=== PATIENT | male | born 1960 | race Two or more races ===

== ENCOUNTER 2021-09-09 22:53 | Emergency (ER) | payer MEDICARE, MEDICAID ==
[~2021-09-09] VITALS: Ht 175.3 cm; Wt 173.7 kg
[2021-09-10 00:54] LABS: Basophils # (auto) 0 10 ^3/uL (0-0.2); Basophils % (auto) 0.6 % (0.0-2.0); Eosinophils # (auto) 0.1 10 ^3/uL (0-0.8); Eosinophils % (auto) 1.8 % (0.0-7.0); Hematocrit 38.9 % (41.0-53.0); Hemoglobin 12.8 g/dL (13.5-17.5); Lymphocytes % (auto) 11.7 % (10.0-50.0); Mean Corpuscular Volume 84.9 fL (80.0-100.0); Monocytes # (auto) 0.8 10 ^3/uL (0-1.3); Monocytes % (auto) 9.5 % (0.0-12.0); Neutrophils # (auto) 6.3 10 ^3/uL (1.6-8.6); Neutrophils % (auto) 76.4 % (37.0-80.0); Nucleated Red Blood Cells % 0.1 %; Red Blood Cells 4.58 10^6/uL (4.5-5.90); Red Cell Distribution Width 14.1 % (11.8-14.3); White Blood Cell 8.2 10^3/uL (4.4-10.8)
[2021-09-10 01:11] LABS: Calcium 8.6 mg/dL (8.5-10.1); Magnesium 2.2 mg/dL (1.6-2.6); Potassium 4.4 mmol/L (3.5-5.1)
[2021-09-10 01:13] LABS: BUN/Creatinine Ratio 18.5
[2021-09-10 01:16] LABS: Bilirubin, Total 0.3 mg/dL (0.2-1.0); Total Protein 6.7 g/dL (6.4-8.2)
[2021-09-10] MEDS ORDERED: SODIUM CHLORIDE 0.9% 1,000 ML IV ONE (02:00)
[2021-09-10] MEDS ORDERED: IOHEXOL 300 MG/ML 100ML BOTTLE IJ ONE (02:07)
[2021-09-10] MEDS ORDERED: KETOROLAC TROMETH 30 MG/ML 1ML VIAL IV ONE (03:15)
[2021-09-10 03:18] VITALS: BP 110/74
== END 2021-09-10 03:55 | disposition home or self-care (01) ==
LOC: ER 22:55
DX: S30.1XXA Contusion of abdominal wall, initial encounter (principal); I10 Essential (primary) hypertension; X50.1XXA Overexertion from prolonged static or awkward postures, initial encounter; Y93.89 Activity, other specified; Y92.89 Other specified places as the place of occurrence of the external cause; Y99.8 Other external cause status
CPT/HCPCS: 36415; 71045; 74022; 74177; 80053; 83605; 83690; 83735; 83880; 85025; 93005; 96361; 96374; 99285; J1885; J7030; Q9967

== ENCOUNTER 2021-11-05 11:27 | Inpatient (IN) | payer MEDICARE, MEDICAID ==
[~2021-11-05] VITALS: Ht 175.3 cm; Wt 173.5 kg
[2021-11-05 13:41] LABS: Basophils # (auto) 0.1 10 ^3/uL (0-0.2); Eosinophils # (auto) 0.1 10 ^3/uL (0-0.8)
[2021-11-05 13:43] LABS: Basophils % (auto) 0.8 % (0.0-2.0); Eosinophils % (auto) 1.4 % (0.0-7.0); Hematocrit 40.5 % (41.0-53.0); Hemoglobin 12.5 g/dL (13.5-17.5); Mean Corpuscular Hemoglobin 25.4 pg (28.0-32.0); Mean Corpuscular Hgb Conc. 30.9 g/dL (32.0-36.0); Mean Corpuscular Volume 82.2 fL (80.0-100.0); Monocytes # (auto) 0.5 10 ^3/uL (0-1.3); Monocytes % (auto) 8.2 % (0.0-12.0); Neutrophils # (auto) 4.7 10 ^3/uL (1.6-8.6); Neutrophils % (auto) 73.6 % (37.0-80.0); Nucleated Red Blood Cells % 0.2 %; Red Blood Cells 4.93 10^6/uL (4.5-5.90); Red Cell Distribution Width 16.9 % (11.8-14.3); White Blood Cell 6.4 10^3/uL (4.4-10.8)
[2021-11-05 14:08] LABS: Albumin 3.4 g/dL (3.4-5.0); BUN/Creatinine Ratio 16.4; Calcium 8.8 mg/dL (8.5-10.1); Potassium 5.3 mmol/L (3.5-5.1)
[2021-11-05 14:10] LABS: Bilirubin, Total 0.6 mg/dL (0.2-1.0); Total Protein 7.1 g/dL (6.4-8.2)
[2021-11-05] MEDS ORDERED: SODIUM BICARBONATE 8.4% INJ 50ML SYRINGE IV ONE (15:30)
[2021-11-05] MEDS ORDERED: ALBUTEROL SULF 2.5 MG/0.5ML(0.5%) NEB SOLN NEB ONE (15:30)
[2021-11-05] MEDS ORDERED: FUROSEMIDE 20 MG/2 ML VIAL IV ONE (15:30)
[2021-11-05] MEDS ORDERED: CALCIUM CHL 100MG/ML 500 MG in D5W 5% 100 ML IV ONE (15:30)
[2021-11-05] MEDS ORDERED: SODIUM ZIRCONIUM CYCL 10 GM PAK PO ONE (15:30)
[2021-11-05] MEDS ORDERED: NITROGLYCERIN 0.4 MG SL TAB SL PRN (16:00)
[2021-11-05] MEDS ORDERED: MORPHINE SULFATE INJ 2 MG/ml SYRG IV PRN ×2 (16:00→23:00)
[2021-11-05] MEDS ORDERED: ENOXAPARIN SOD 150 MG/1 ML SYRINGE SC ONE (16:15)
[2021-11-05] MEDS ORDERED: FUROSEMIDE 100 MG/10ML VIAL IV ONE (16:30)
[2021-11-05] MEDS ORDERED: IOHEXOL 350 MG/ML 100ML IJ ONE (17:42)
[2021-11-05 18:39] LABS: Urine Bacteria NONE SEEN /hpf (None Seen); Urine Blood Negative /uL (Negative); Urine Specific Gravity 1.012 (1.001-1.035); Urine WBC 1 /hpf (0 - 3)
[2021-11-05] MEDS ORDERED: DOCUSATE SOD 100 MG CAP PO PRN (23:00)
[2021-11-05] MEDS ORDERED: ONDANSETRON HCL 4 MG/2 ML VIAL IV PRN (23:00)
[2021-11-05] MEDS ORDERED: hydrALAZINE HCL 20 MG/ML VL IV PRN (23:00)
[2021-11-05] MEDS ORDERED: ACETAMINOPHEN 325 MG TAB PO PRN (23:00)
[2021-11-05] MEDS ORDERED: LORazepam 0.5 MG TAB PO PRN (23:00)
[2021-11-05] MEDS ORDERED: PANTOPRAZOLE 40 MG/10 ML VIAL INJ IV ONE (23:00)
[2021-11-05] MEDS ORDERED: ALBUTEROL SULF 2.5 MG/0.5ML(0.5%) NEB SOLN NEB PRN (23:00)
[2021-11-05 23:41] VITALS: BP 112/77
[2021-11-06] MEDS ORDERED: IPRATROPIUM BROM 0.5 MG/2.5ML INH SOL NEB SCH (02:00)
[2021-11-06 02:03] VITALS: BP 120/73
[2021-11-06 03:38] VITALS: BP 120/73
[2021-11-06 03:38] LABS: INR 1.02 (0.9-1.15); Partial Thromboplastin Time 27.2 sec (23.6-33.0)
[2021-11-06 03:41] LABS: Magnesium 2.1 mg/dL (1.6-2.6); Phosphorus 4.6 mg/dL (2.5-4.90)
[2021-11-06 04:05] VITALS: BP 124/88
[2021-11-06] MEDS ORDERED: ACETYLCYSTEINE 10 %(100MG/ML) SOL 4ML NEB SCH (06:00)
[2021-11-06 06:25] LABS: Eosinophils # (auto) 0.1 10 ^3/uL (0-0.8)
[2021-11-06 06:29] LABS: Basophils # (auto) 0.1 10 ^3/uL (0-0.2); Basophils % (auto) 1.3 % (0.0-2.0); Eosinophils % (auto) 2.3 % (0.0-7.0); Hematocrit 39.5 % (41.0-53.0); Hemoglobin 12.4 g/dL (13.5-17.5); Lymphocytes % (auto) 17.9 % (10.0-50.0); Mean Corpuscular Hgb Conc. 31.4 g/dL (32.0-36.0); Mean Corpuscular Volume 82.6 fL (80.0-100.0); Monocytes # (auto) 0.4 10 ^3/uL (0-1.3); Neutrophils # (auto) 3.8 10 ^3/uL (1.6-8.6); Neutrophils % (auto) 70.5 % (37.0-80.0); Nucleated Red Blood Cells % 0.1 %; Red Blood Cells 4.78 10^6/uL (4.5-5.90); Red Cell Distribution Width 16.7 % (11.8-14.3); White Blood Cell 5.4 10^3/uL (4.4-10.8)
[2021-11-06 06:50] LABS: Magnesium 2.3 mg/dL (1.6-2.6); Potassium 4.8 mmol/L (3.5-5.1)
[2021-11-06 06:52] LABS: Mean Corpuscular Hemoglobin 25.9 pg (28.0-32.0)
[2021-11-06 06:58] LABS: Albumin 3.2 g/dL (3.4-5.0); BUN/Creatinine Ratio 17.7; Bilirubin, Total 0.6 mg/dL (0.2-1.0); CRP High Sensitivity 0.36 mg/dL (< 0.3); Calcium 8.5 mg/dL (8.5-10.1); Phosphorus 4.5 mg/dL (2.5-4.90); Total Protein 6.9 g/dL (6.4-8.2); Uric Acid 6.9 mg/dL (3.5-7.2)
[2021-11-06 07:08] LABS: INR 1.05 (0.9-1.15); Partial Thromboplastin Time 31.3 sec (23.6-33.0)
[2021-11-06] MEDS: HYDROcodone-ACET 5/325MG TAB PO PRN (07:36)
[2021-11-06 08:07] LABS: Alcohol, Urine < 3.0 mg/dL (0-10); Amphetamine Screen, Urine NEGATIVE (NEGATIVE); Barbiturate Scree,Urine NEGATIVE (NEGATIVE); Benzodiazephine Screen, Urine NEGATIVE (NEGATIVE); Cannabinoid Screen, Urine NEGATIVE (NEGATIVE); Cocaine Screen, Urine NEGATIVE (NEGATIVE); Opiate Scree,Urine NEGATIVE (NEGATIVE); Phencyclidine Screen, Urine NEGATIVE (NEGATIVE)
[2021-11-06 08:17] LABS: Urine Bacteria NONE SEEN /hpf (None Seen); Urine Blood Negative /uL (Negative); Urine Specific Gravity 1.035 (1.001-1.035); Urine WBC 1 /hpf (0 - 3)
[2021-11-06 10:00] VITALS: BP 117/82
[2021-11-06] MEDS ORDERED: BUDESONIDE (INHALATION) 0.5 MG/2 ML NEB NEB SCH (10:00)
[2021-11-06] MEDS ORDERED: NIFEdipine ER 30 MG TAB PO SCH (10:00)
[2021-11-06] MEDS ORDERED: AZITHROMYCIN 500MG/ 250ML 250 ML IV SCH (10:00)
[2021-11-06] MEDS ORDERED: PANTOPRAZOLE 40 MG/10 ML VIAL INJ IV SCH (10:00)
[2021-11-06] MEDS ORDERED: HYDR-4902 PO (11:10)
[2021-11-06] MEDS ORDERED: LISI-706 PO (11:10)
[2021-11-06] MEDS ORDERED: TAMS0.4C36 PO (11:10)
[2021-11-06] MEDS: ENOXAPARIN SOD 40 MG/0.4 ML SYRINGE SC SCH (11:12)
[2021-11-06] MEDS ORDERED: methylPREDNISolone SOD SUCC 40 MG/ML VL IV SCH (14:00)
[2021-11-06 17:16] VITALS: BP 121/68
[2021-11-06] MEDS: TAMSULOSIN HYDROCHLORIDE 0.4 MG CAP PO SCH (18:01)
[2021-11-06] MEDS: FUROSEMIDE 20 MG/2 ML VIAL IV SCH (18:01)
[2021-11-06 22:00] VITALS: BP 125/65
[2021-11-07 05:00] VITALS: BP 119/67
[2021-11-07] MEDS: FUROSEMIDE 20 MG/2 ML VIAL IV SCH ×2 (05:17→17:05)
[2021-11-07 06:50] LABS: BUN/Creatinine Ratio 19.1
[2021-11-07 08:00] VITALS: BP 102/53
[2021-11-07] MEDS: AZITHROMYCIN 250 MG TAB PO SCH (10:17)
[2021-11-07] MEDS: FAMOTIDINE 20 MG TAB PO SCH (10:18)
[2021-11-07] MEDS: ENOXAPARIN SOD 40 MG/0.4 ML SYRINGE SC SCH (10:19)
[2021-11-07 12:00] VITALS: BP 116/42
[2021-11-07 16:00] VITALS: BP 112/57
[2021-11-07] MEDS: TAMSULOSIN HYDROCHLORIDE 0.4 MG CAP PO SCH (17:05)
[2021-11-07] MEDS: HYDROcodone-ACET 5/325MG TAB PO PRN (22:31)
[2021-11-07 22:34] VITALS: BP 111/66
[2021-11-08 05:37] VITALS: BP 143/80
[2021-11-08] MEDS: FUROSEMIDE 20 MG/2 ML VIAL IV SCH (05:59)
[2021-11-08] MEDS: HYDROcodone-ACET 5/325MG TAB PO PRN (06:06)
[2021-11-08 08:00] VITALS: BP 113/63
[2021-11-08 09:00] VITALS: BP 113/63
[2021-11-08] MEDS: AZITHROMYCIN 250 MG TAB PO SCH (10:04)
[2021-11-08] MEDS: FAMOTIDINE 20 MG TAB PO SCH (10:04)
[2021-11-08] MEDS: ENOXAPARIN SOD 40 MG/0.4 ML SYRINGE SC SCH (10:04)
[2021-11-08] MEDS ORDERED: FURO1TAB31 PO (10:28)
[2021-11-08] MEDS ORDERED: POTA-167 PO (10:28)
[2021-11-08] MEDS ORDERED: LISI-716 PO (10:28)
[2021-11-08] MEDS ORDERED: LEVO500T31 PO (10:28)
[2021-11-08 11:44] VITALS: BP 112/63
== END 2021-11-08 13:00 | disposition home or self-care (01) | DRG 193 ==
LOC: ER 11:27 → EDBD 11:27 → TELE 15:47 → TELE-CENTR 11-06 09:12 → CENTRAL 11-07 17:04
PROVIDERS: ADMIT Hospitalist; ATTEND Internal Medicine
PROC: 5A09357 Assistance with Respiratory Ventilation, Less than 24 Consecutive Hours, Continuous Positive Airway Pressure (ICD-10-PCS; principal; 2021-11-05)
PROC: 5A09357 Assistance with Respiratory Ventilation, Less than 24 Consecutive Hours, Continuous Positive Airway Pressure (ICD-10-PCS; 2021-11-06)
PROC: 5A09357 Assistance with Respiratory Ventilation, Less than 24 Consecutive Hours, Continuous Positive Airway Pressure (ICD-10-PCS; 2021-11-07)
DX: J18.9 Pneumonia, unspecified organism (principal); J96.02 Acute respiratory failure with hypercapnia; J96.01 Acute respiratory failure with hypoxia; I50.31 Acute diastolic (congestive) heart failure; J44.1 Chronic obstructive pulmonary disease with (acute) exacerbation; E66.2 Morbid (severe) obesity with alveolar hypoventilation; Z68.43 Body mass index [BMI] 50.0-59.9, adult; J44.0 Chronic obstructive pulmonary disease with (acute) lower respiratory infection; I11.0 Hypertensive heart disease with heart failure; N40.0 Benign prostatic hyperplasia without lower urinary tract symptoms; Z20.822 Contact with and (suspected) exposure to COVID-19; I87.2 Venous insufficiency (chronic) (peripheral); I27.21 Secondary pulmonary arterial hypertension; E78.5 Hyperlipidemia, unspecified; E87.5 Hyperkalemia; R79.89 Other specified abnormal findings of blood chemistry; Z79.899 Other long term (current) drug therapy; Z98.84 Bariatric surgery status
CPT/HCPCS: 36415; 36600; 71045; 71275; 80048; 80053; 80061; 80307; 81001; 82550; 82728; 82805; 83036; 83615; 83690; 83735; 83880; 84100; 84156; 84443; 84484; 84550; 85025; 85379; 85610; 85652; 85730; 86141; 87040; 87086; 93005; 93306; 93970; 94640; 94660; 96374; 96375; 99291; C9113; G0378; J7060